=== PATIENT | male | born 1940 | race African-American/Black ===

== ENCOUNTER 2025-02-05 18:53 | Emergency (ER) | payer OTHER, MEDICAID ==
[~2025-02-05] VITALS: Ht 160 cm; Wt 68.0 kg
[~2025-02-05 18:53] MED LIST: AMLO-138 PO; ASPI-1406 PO; IBUP-1653 PO; INSU100I28 SQ; METF-1150 PO; SILD100T69 PO; TAMS-54 PO
[2025-02-05 18:56] VITALS: O2SAT 98
[2025-02-05 19:06] VITALS: BP 130/69; PULSE 68; RESP 16; TEMP 36.6; O2SAT 100
[2025-02-05 20:14] LABS: BASOPHILS % 0.7 % (0.0-2.0); EOSINOPHILS % 2.1 % (0.0-5.0); HEMATOCRIT. 33.7 % (42.0-52.0); HEMOGLOBIN. 11.2 g/dL (14.0-18.0); LYMPHOCYTES % 31.0 % (20.0-50.0); MEAN PLATELET VOLUME 8.8 fl (7.4-10.4); MONOCYTES % 10.5 % (2.0-8.0); NEUTROPHILS % 55.7 % (40.0-76.0); PLATELET 163 x1000/uL (130-400); RED BLOOD CELL COUNT 4.00 mill/uL (4.7-6.1); RED CELL DISTRIBUTION WIDTH 13.3 % (11.6-14.6)
[2025-02-05 20:30] LABS: CREATININE 1.2 mg/dL (0.6-1.3); UREA NITROGEN BLOOD 13 mg/dL (9-23)
[2025-02-05 20:31] LABS: TROPONIN I HIGH SENSITIVITY 33 ng/L (3.0-53)
[2025-02-05] MEDS ORDERED: NITROGLYCERIN 0.4MG TABLET SL SL ONE (23:30)
[2025-02-05] MEDS ORDERED: ASPIRIN 325MG EC TABLET PO ONE (23:30)
[2025-02-05 23:35] LABS: TROPONIN I HIGH SENSITIVITY 35 ng/L (3.0-53)
== END 2025-02-06 00:28 | disposition left against medical advice (07) ==
LOC: ER 18:53 → CANBEDREQ 02-06 00:57
DX: R07.89 Other chest pain (principal); E11.9 Type 2 diabetes mellitus without complications; I10 Essential (primary) hypertension; Z79.4 Long term (current) use of insulin; Z79.899 Other long term (current) drug therapy; Z79.84 Long term (current) use of oral hypoglycemic drugs; Z79.82 Long term (current) use of aspirin; Z79.01 Long term (current) use of anticoagulants; Z53.29 Procedure and treatment not carried out because of patient's decision for other reasons
CPT/HCPCS: 36415; 71045; 80048; 84484; 85025; 93005; 99285